=== PATIENT | male | born 1945 | race African-American/Black ===

== ENCOUNTER 2018-06-06 15:23 | Emergency (ER) | payer MEDICARE, BC ==
[2018-06-06] MEDS ORDERED: Adacel (T-DAP) 0.5 ML VIAL ONE (15:28)
[2018-06-06] MEDS ORDERED: CEFAZOLIN 1 GM VIAL ONE (16:01)
[2018-06-06] MEDS ORDERED: Fentanyl 100 MCG/2 ML VIAL ONE (16:01)
--- NOTE | 2018-06-06 16:41 | RAD ---
RIGHT FEMUR 2 VIEWS: Date: 06/06/18 HISTORY: Laceration to the right upper thigh. Right thigh pain. FINDINGS/IMPRESSION: The right femur is intact. No radiopaque foreign body is identified. Soft tissue laceration is seen i n the lateral aspect of the right upper thigh. POS: [facility]
[2018-06-06] MEDS ORDERED: Bacitracin Zinc 1 Packet ONE (17:43)
== END 2018-06-06 17:50 | disposition home or self-care (01) ==
LOC: ERS 15:23
DX: S71.111A Laceration without foreign body, right thigh, initial encounter (principal); I10 Essential (primary) hypertension; E78.00 Pure hypercholesterolemia, unspecified; F17.210 Nicotine dependence, cigarettes, uncomplicated; Z79.899 Other long term (current) drug therapy; W27.0XXA Contact with workbench tool, initial encounter
CPT/HCPCS: 13121; 13122; 90471; 90715; 96365; 96366; 96375; J0690; J3010